=== PATIENT | female | born 1970 | race African-American/Black ===

== ENCOUNTER 2018-04-03 09:39 | Emergency (ER) | payer SELFPAY ==
[~2018-04-03] VITALS: Ht 152.4 cm; Wt 63.5 kg
[2018-04-03] MEDS ORDERED: LORazepam 1MG TABLET ONE (10:34)
--- NOTE | 2018-04-03 10:48 | NUR ---
AMBULATORY TO RESTROOM FOR URINE SAMPLE
[2018-04-03] MEDS ORDERED: LORazepam 1MG TABLET PO ONE (11:00)
[2018-04-03 11:07] LABS: ALBUMIN 4.1 g/dL (3.4-5.0); ANION GAP 9 mmol/L (5-15); CALCIUM 8.7 mg/dL (8.5-10.1); CHLORIDE 107 mmol/L (98-107)
[2018-04-03 11:09] LABS: MICROSCOPIC NOT IND
[2018-04-03 11:12] LABS: CULTURE INDICATED? NO
[2018-04-03 11:19] LABS: ALANINE AMINOTRANSFERASE 21 U/L (12-78); ALKALINE PHOSPHATASE 105 U/L (45-117); BILIRUBIN,TOTAL 0.7 mg/dL (0.2-1.0); CREATININE 0.81 mg/dL (0.55-1.02); THYROID STIMULATING HORMONE 0.374 mIU/L (0.358-3.740)
[2018-04-03 11:21] LABS: AMPHETAMINE SCREEN, URINE Negative (Negative); BARBITURATE SCREEN, URINE Negative (Negative); BENZODIAZEPINE SCREEN, URINE Negative (Negative); CANNABINOID SCREEN, URINE Positive (Negative); COCAINE SCREEN, URINE Negative (Negative); METHADONE SCREEN, URINE Negative (Negative); OPIATE SCREEN, URINE Negative (Negative)
[2018-04-03 11:33] LABS: MEAN CORPUSCULAR HEMOGLOBIN 26.6 pg (27.0-34.8); MEAN CORPUSCULAR HGB CONC 32.1 g/dL (32.4-35.8); MEAN CORPUSCULAR VOLUME 82.7 fL (80-100); MEAN PLATELET VOLUME 9.9 fL (7.4-10.4); PLATELET COUNT 245 x10^3/uL (130-400); RED BLOOD COUNT 5.79 x10^6/uL (3.82-5.3)
[2018-04-03 11:36] LABS: BASOPHILS # (AUTO) 0.01 x10^3/uL (0-0.1); BASOPHILS % (AUTO) 0 % (0-1); EOSINOPHILS # (AUTO) 0.04 x10^3/uL (0-0.4); EOSINOPHILS % (AUTO) 1 % (1-7); LYMPHOCYTES # (AUTO) 1.06 x10^3/uL (1-3.4); LYMPHOCYTES % (AUTO) 23 % (22-44); MD SCAN; MONOCYTES # (AUTO) 0.17 x10^3/uL (0.2-0.8); MONOCYTES % (AUTO) 4 % (2-9); NEUTROPHILS # (AUTO) 3.26 x10^3/uL (1.8-6.8); NEUTROPHILS % (AUTO) 72 % (42-75)
[2018-04-03 11:50] VITALS: BP 155/107
== END 2018-04-03 12:04 | disposition home or self-care (01) ==
LOC: ED 11:50
DX: F32.2 Major depressive disorder, single episode, severe without psychotic features (principal)
CPT/HCPCS: 36415; 80053; 80307; 81003; 84443; 85025; 99283

== ENCOUNTER 2018-07-31 23:20 | Emergency (ER) | payer MEDICAID ==
[~2018-07-31] VITALS: Ht 152.4 cm; Wt 65.0 kg
--- NOTE | 2018-07-31 23:51 | NUR ---
PT REGISTERED UNDER JENIFFER. GREG CALLED
--- NOTE | 2018-08-01 | NUR ---
DR. BETANCOURT AT BEDSIDE EVALUATING PT
--- NOTE | 2018-08-01 00:23 | NUR ---
[employer] AT BEDSIDE. PT IS MORE CALM AND GRATEFUL FOR STAFF'S HELP TONIGHT.
[2018-08-01] MEDS ORDERED: DIPHTHERIA-TETANUS ADULT 0.5ML IM-VACC ONE (00:30)
[2018-08-01] MEDS ORDERED: LIDOCAINE-MPF 1%, 5ML ONE (00:55)
[2018-08-01] MEDS ORDERED: ACETAMINOPHEN 500 MG TABLET ONE (01:40)
--- NOTE | 2018-08-01 01:41 | NUR ---
Break RN:patient c/o headache. medicated.
[2018-08-01] MEDS ORDERED: ACETAMINOPHEN 500 MG TABLET PO ONE (02:00)
--- NOTE | 2018-08-01 02:10 | NUR ---
PT RESTING ON GURNEY, IN NAD. VITALS STABLE. WILL CONTINUE TO MONITOR. AWAITING [employer] DISPO FOR DISCHARGE.
[2018-08-01 02:19] VITALS: BP 155/85
[2018-08-01] MEDS ORDERED: BACITRACIN ZINC OINT 500U/GM, 0.9 GM ONE (02:50)
--- NOTE | 2018-08-01 03:02 | NUR ---
Patient/Caregiver given discharge instructions and they have confirmed that they understand the instructions. Patient ambulatory with steady gait.
== END 2018-08-01 03:03 | disposition home or self-care (01) ==
LOC: ED 08-01 00:02
DX: S01.81XA Laceration without foreign body of other part of head, initial encounter (principal); S20.219A Contusion of unspecified front wall of thorax, initial encounter; I10 Essential (primary) hypertension; Y04.8XXA Assault by other bodily force, initial encounter; Y93.89 Activity, other specified; Y92.009 Unspecified place in unspecified non-institutional (private) residence as the place of occurrence of the external cause; Y99.8 Other external cause status
CPT/HCPCS: 70450; 71045; 99284

== ENCOUNTER 2020-09-25 12:39 | Emergency (ER) | payer MEDICAID ==
[~2020-09-25] VITALS: Ht 152.4 cm; Wt 68.4 kg
[2020-09-25 13:10] VITALS: BP 129/92
[2020-09-25 13:50] LABS: BASOPHILS % (AUTO) 2 % (0-1); EOSINOPHILS % (AUTO) 1 % (1-7); LYMPHOCYTES % (AUTO) 29 % (22-44); MEAN CORPUSCULAR HEMOGLOBIN 26.2 pg (27.0-34.8); MEAN CORPUSCULAR HGB CONC 32.2 g/dL (32.4-35.8); MEAN PLATELET VOLUME 8.9 fL (7.4-10.4); MONOCYTES % (AUTO) 7 % (2-9); NEUTROPHILS % (AUTO) 62 % (42-75); PLATELET COUNT 208 x10^3/uL (130-400); RED BLOOD COUNT 4.98 x10^6/uL (3.82-5.3); RED CELL DISTRIBUTION WIDTH 13.5 % (9.6-15.2)
[2020-09-25 13:55] LABS: ALANINE AMINOTRANSFERASE 25 U/L (12-78); ALBUMIN 2.8 g/dL (3.4-5.0); ANION GAP 4 mmol/L (5-15); CALCIUM 7.8 mg/dL (8.5-10.1); CHLORIDE 112 mmol/L (98-107); CREATININE 0.91 mg/dL (0.55-1.02)
[2020-09-25 14:01] LABS: ALKALINE PHOSPHATASE 69 U/L (45-117); BILIRUBIN,TOTAL 0.4 mg/dL (0.2-1.0); TOTAL PROTEIN 5.6 g/dL (6.4-8.2)
--- NOTE | 2020-09-25 16:06 | NUR ---
This health sciences department chair attempted to call patient back for second set of vitals. No answer in lobby at this time. ([id number])
--- NOTE | 2020-09-25 16:55 | NUR ---
sales agent insurance: attempted to call pt from lobby to room, no answer in lobby
== END 2020-09-25 17:41 ==
LOC: ED 17:20
DX: M25.512 Pain in left shoulder (principal); R07.9 Chest pain, unspecified; I10 Essential (primary) hypertension; Z91.14 Patient's other noncompliance with medication regimen
CPT/HCPCS: 36415; 71045; 80053; 85025; 93005; 99285